=== PATIENT | female | born 1950 | race Caucasian/White ===

== ENCOUNTER 2024-07-20 19:12 | Inpatient (IN) | payer BC, MEDICARE, OTHER ==
[~2024-07-20] VITALS: Ht 157.5 cm; Wt 50.3 kg
[2024-07-20] MEDS: SENNOSIDES/DOCUSATE SODIUM TABLET PO SCH (02:15)
[~2024-07-20 19:12] MED LIST: ACET-2154 PO; MAGN400O6 PO; POTA20PA40 PO; THIA100T13 PO; ZOFRAN IV
[2024-07-20] MEDS ORDERED: SENN1TAB59 PO (19:37)
[2024-07-20] MEDS ORDERED: DOCU-141 PO (19:37)
[2024-07-20] MEDS ORDERED: MELA10TA2 PO (19:37)
[2024-07-20] MEDS ORDERED: MIRT-73 PO (19:37)
[2024-07-20] MEDS ORDERED: GABA-532 PO (19:37)
[2024-07-20] MEDS ORDERED: GUAI237L98 PO (19:37)
[2024-07-20] MEDS ORDERED: QUET100T PO (19:37)
[2024-07-20] MEDS ORDERED: LORA-259 PO (19:37)
[2024-07-20] MEDS ORDERED: MAG30ORA PO (19:37)
[2024-07-20] MEDS ORDERED: THIA50TA10 PO (19:37)
[2024-07-20] MEDS ORDERED: NA P133E RC (19:37)
[2024-07-20] MEDS ORDERED: TRAZ-257 PO (19:37)
[2024-07-20] MEDS ORDERED: QUET50TA PO (19:37)
[2024-07-20 20:07] LABS: BASOPHILS # (AUTO) 0.1 K/UL (0.0-0.2); BASOPHILS % (AUTO) 0.9 % (0.0-2.0); EOSINOPHILS # (AUTO) 0.2 K/uL (0.0-0.7); EOSINOPHILS % (AUTO) 2.7 % (0.0-7.0); HEMATOCRIT 36.3 % (31.2-41.9); HEMOGLOBIN 11.7 g/dL (10.9-14.3); LYMPHOCYTES # (AUTO) 1.7 K/uL (0.8-4.8); LYMPHOCYTES % (AUTO) 29.7 % (20.5-51.5); MEAN CORPUSCULAR HEMOGLOBIN 29.4 uug (24.7-32.8); MEAN CORPUSCULAR HGB CONC 32 g/dL (32.3-35.6); MEAN CORPUSCULAR VOLUME 91.5 fL (75.5-95.3); MONOCYTES # (AUTO) 0.4 K/uL (0.1-1.30); MONOCYTES % (AUTO) 7.4 % (0.0-11.0); NEUTROPHILS # (AUTO) 3.4 K/uL (1.8-8.9); NEUTROPHILS % (AUTO) 59.3 % (38.5-71.5); PLATELET COUNT (AUTO) 222 K/uL (179-408); RED BLOOD CELL COUNT(AUTO) 3.96 MIL/uL (3.63-4.92); RED CELL DISTRIBUTION WIDTH 16.4 % (12.3-17.7); WHITE BLOOD COUNT (AUTO) 5.7 K/uL (3.8-11.8)
[2024-07-20 20:09] LABS: DIFFERENTIAL COMMENT 1
[2024-07-20 20:14] LABS: CALCIUM 9.4 mg/dL (8.5-10.1); CARBON DIOXIDE 30 mmol/L (21-32); CHLORIDE 105 mmol/L (98-107); CREATININE 1.2 mg/dL (0.6-1.3); GLUCOSE 94 mg/dL (74-106); POTASSIUM 3.7 mmol/L (3.5-5.1); SODIUM SERUM 143 mmol/L (136-145); UREA NITROGEN, BLOOD 32 mg/dL (7-18)
[2024-07-20 20:22] LABS: ALANINE AMINOTRANSFERASE 61 U/L (14-59); ALKALINE PHOSPHATASE 104 U/L (50-136); ASPARTATE AMINOTRANSFERASE 47 U/L (15-37); BILIRUBIN,DIRECT 0.1 mg/dL (0.0-0.2); BILIRUBIN,TOTAL 0.3 mg/dL (0.2-1.0); TOTAL PROTEIN, SERUM 7.6 g/dL (6.4-8.2)
[2024-07-20 20:32] LABS: ETHANOL < 3 MG/DL (0-10)
[2024-07-20] MEDS ORDERED: MAG HYDROX/AL HYDROX/SIMETH 30 ML LIQUID UDC PO PRN (21:00)
[2024-07-20] MEDS ORDERED: ACETAMINOPHEN 325 MG TABLET-SA PATIENTS-PAIN ONLY PO PRN (21:00)
[2024-07-20 22:25] LABS: *BILIRUBIN,URIN NEGATIVE (NEGATIVE); *BLOOD, URINE NEGATIVE (NEGATIVE); *CLARITY,URINE CLEAR (CLEAR); *COLOR,URINE YELLOW (YELLOW); *KETONES,URINE 1+ (NEGATIVE); *PROTEIN,URINE NEGATIVE (NEGATIVE); *UROBILINOGEN,URINE 0.2 E.U./dl (NORMAL); LEUKOCYTE ESTERASE ,URINE NEGATIVE (NEGATIVE); NITRITE, URINE NEGATIVE (NEGATIVE); UGLUCOSE NEGATIVE (NEGATIVE)
[2024-07-20 23:28] LABS: *AMPHETAMINE, URINE NEGATIVE (NEGATIVE); *BARBITURATE, URINE NEGATIVE (NEGATIVE); *BENZODIAZEPINE, URINE NEGATIVE (NEGATIVE); *CANNABINOID, URINE NEGATIVE (NEGATIVE); *COCCAINE, URINE NEGATIVE (NEGATIVE); *OPIATE, URINE NEGATIVE (NEGATIVE); *PHENCYCLIDINE SCREEN,URINE NEGATIVE (NEGATIVE); FENTANYL, URINE NEGATIVE (NEGATIVE)
[2024-07-21 01:15] VITALS: BP 133/67; TEMP 98; O2SAT 95
[2024-07-21] MEDS ORDERED: LORAZEPAM 0.5 MG TABLET PO PRN ×2 (01:15)
[2024-07-21] MEDS ORDERED: TEMAZEPAM 7.5 MG CAPSULE PO PRN (01:15)
[2024-07-21] MEDS ORDERED: MAGNESIUM HYDROXIDE 30 ML LIQUID UDC PO PRN (01:15)
[2024-07-21] MEDS: BLOOD SUGAR DIAGNOSTIC 1 EACH STRIP VI ONE (01:30)
[2024-07-21] MEDS: TEMAZEPAM 7.5 MG CAPSULE PO PRN (01:40)
[2024-07-21 08:08] VITALS: BP 140/56; TEMP 98; O2SAT 96
[2024-07-21] MEDS: DOCUSATE SODIUM 100 MG CAPSULE PO SCH (08:48)
[2024-07-21] MEDS: THIAMINE HCL 100 MG TABLET PO SCH (08:48)
[2024-07-21] MEDS ORDERED: Medication Not On Formulary EA (Thiamine Hcl (Vitamin B-1) 100 MG) PO SCH (09:00)
[2024-07-21] MEDS: LORAZEPAM 0.5 MG TABLET PO PRN (15:13)
[2024-07-21 15:34] VITALS: BP 103/56; TEMP 98; O2SAT 94
[2024-07-21] MEDS: OLANZAPINE 10 MG VIAL IM ONE (16:00)
[2024-07-21] MEDS: LORAZEPAM 1 MG TABLET PO SCH (17:29)
[2024-07-21] MEDS: QUETIAPINE FUMARATE 25 MG TABLET PO SCH (20:06)
[2024-07-21 20:16] VITALS: BP 99/63; TEMP 97.9; O2SAT 95
[2024-07-22] MEDS: risperiDONE 0.5 MG TABLET PO SCH (08:38)
[2024-07-22 10:29] VITALS: BP 100/59; TEMP 98.2; O2SAT 96
[2024-07-22 11:33] LABS: ALBUMIN 3.6 g/dL (3.4-5.0); BILIRUBIN,DIRECT 0.1 mg/dL (0.0-0.2); BILIRUBIN,TOTAL 0.3 mg/dL (0.2-1.0); TOTAL PROTEIN, SERUM 7.4 g/dL (6.4-8.2)
[2024-07-22 15:33] VITALS: BP 117/52; TEMP 98; O2SAT 96
[2024-07-22] MEDS: risperiDONE 1 MG TABLET PO SCH (16:50)
[2024-07-22 20:03] VITALS: BP 150/70; TEMP 98.1; O2SAT 95
[2024-07-23 07:55] VITALS: BP 137/57; TEMP 98.2; O2SAT 98
[2024-07-23] MEDS: ACETAMINOPHEN 325 MG TABLET PO PRN (12:11)
[2024-07-23 16:04] VITALS: BP 106/80; TEMP 98.3; O2SAT 96
[2024-07-23 20:08] VITALS: BP 121/71; TEMP 98.1; O2SAT 94
[2024-07-23] MEDS: TEMAZEPAM 7.5 MG CAPSULE PO PRN (21:38)
[2024-07-24 07:40] VITALS: BP 106/56; TEMP 97.7; O2SAT 98
[2024-07-24 15:40] VITALS: BP 122/60; TEMP 97.6; O2SAT 97
[2024-07-24] MEDS: QUETIAPINE FUMARATE 25 MG TABLET PO SCH (20:16)
[2024-07-24 21:40] VITALS: BP 110/61; TEMP 98; O2SAT 98
[2024-07-25 08:00] VITALS: BP_SYST 130; BP_SYST 149; BP_DIAS 62; BP_DIAS 71; TEMP 98.2; TEMP 98.3; O2SAT 18; O2SAT 99
[2024-07-25] MEDS: DIVALPROEX 125 MG TABLET.DR PO SCH (13:06)
[2024-07-25] MEDS: risperiDONE 1 MG TABLET PO SCH (13:07)
[2024-07-25 15:00] VITALS: BP 129/72; TEMP 98.4; O2SAT 96
[2024-07-25 20:00] VITALS: BP 149/71; TEMP 98.2; O2SAT 96
[2024-07-26 09:54] VITALS: BP 119/72; TEMP 97.7; O2SAT 96
[2024-07-26] MEDS ORDERED: LORAZEPAM 0.5 MG TABLET PO PRN (11:00)
[2024-07-26] MEDS: ENSURE ENLIVE (VAN) 240 ML LIQUID PO SCH (16:42)
[2024-07-26 19:52] VITALS: BP 120/66; TEMP 97.9; O2SAT 95
[2024-07-26] MEDS: QUETIAPINE FUMARATE 25 MG TABLET PO SCH (20:50)
[2024-07-27 07:55] VITALS: BP 149/73; TEMP 98; O2SAT 96
[2024-07-27] MEDS: LORAZEPAM 0.5 MG TABLET PO SCH ×2 (08:52→16:58)
[2024-07-27] MEDS ORDERED: DIVALPROEX 125 MG TABLET.DR PO SCH ×2 (13:00)
[2024-07-27] MEDS: DIVALPROEX 250 MG TABLET.DR PO SCH ×2 (13:55→16:57)
[2024-07-27 15:19] VITALS: BP 137/48; TEMP 98; O2SAT 96
[2024-07-27 19:44] VITALS: BP 134/58; TEMP 98.1; O2SAT 96
[2024-07-27] MEDS: TEMAZEPAM 7.5 MG CAPSULE PO SCH (20:53)
[2024-07-28 07:27] LABS: BASOPHILS # (AUTO) 0.1 K/UL (0.0-0.2); BASOPHILS % (AUTO) 0.9 % (0.0-2.0); EOSINOPHILS # (AUTO) 0.2 K/uL (0.0-0.7); EOSINOPHILS % (AUTO) 2.1 % (0.0-7.0); HEMATOCRIT 34.2 % (31.2-41.9); HEMOGLOBIN 11.3 g/dL (10.9-14.3); LYMPHOCYTES # (AUTO) 1.5 K/uL (0.8-4.8); LYMPHOCYTES % (AUTO) 19.5 % (20.5-51.5); MEAN CORPUSCULAR HGB CONC 33 g/dL (32.3-35.6); MEAN CORPUSCULAR VOLUME 90.7 fL (75.5-95.3); MONOCYTES # (AUTO) 0.7 K/uL (0.1-1.30); MONOCYTES % (AUTO) 9.2 % (0.0-11.0); NEUTROPHILS # (AUTO) 5.1 K/uL (1.8-8.9); NEUTROPHILS % (AUTO) 68.3 % (38.5-71.5); PLATELET COUNT (AUTO) 225 K/uL (179-408); RED BLOOD CELL COUNT(AUTO) 3.77 MIL/uL (3.63-4.92); RED CELL DISTRIBUTION WIDTH 15.4 % (12.3-17.7); WHITE BLOOD COUNT (AUTO) 7.5 K/uL (3.8-11.8)
[2024-07-28 07:49] LABS: ALANINE AMINOTRANSFERASE 42 U/L (14-59); ALBUMIN 3.3 g/dL (3.4-5.0); ALKALINE PHOSPHATASE 94 U/L (50-136); ASPARTATE AMINOTRANSFERASE 34 U/L (15-37); BILIRUBIN,TOTAL 0.4 mg/dL (0.2-1.0); CALCIUM 9.2 mg/dL (8.5-10.1); CARBON DIOXIDE 31 mmol/L (21-32); CHLORIDE 108 mmol/L (98-107); GLUCOSE 97 mg/dL (74-106); POTASSIUM 4.1 mmol/L (3.5-5.1); SODIUM SERUM 146 mmol/L (136-145); TOTAL PROTEIN, SERUM 7.1 g/dL (6.4-8.2); UREA NITROGEN, BLOOD 22 mg/dL (7-18); VALPROIC ACID 31 ug/mL (50-100)
[2024-07-28 07:50] LABS: DIFFERENTIAL COMMENT 1
[2024-07-28 09:00] VITALS: BP 105/64; TEMP 98; O2SAT 98
[2024-07-28 15:17] VITALS: BP 114/52; TEMP 98; O2SAT 98
[2024-07-28 20:10] VITALS: BP 110/60; TEMP 98.1; O2SAT 96
[2024-07-29 08:39] VITALS: BP 126/44; TEMP 98; O2SAT 96
[2024-07-29] MEDS: LORAZEPAM 0.5 MG TABLET PO SCH (14:46)
[2024-07-29 16:35] VITALS: BP 99/44; TEMP 98; O2SAT 96
[2024-07-29 19:59] VITALS: BP 124/57; TEMP 98.1; O2SAT 96
[2024-07-30 15:36] VITALS: BP 139/68; TEMP 98; O2SAT 98
[2024-07-30] MEDS: DIVALPROEX SPRINKLE 125 MG CAP.SPRINK PO SCH (16:48)
[2024-07-31 01:59] LABS: *BILIRUBIN,URIN NEGATIVE (NEGATIVE); *BLOOD, URINE NEGATIVE (NEGATIVE); *CLARITY,URINE CLEAR (CLEAR); *COLOR,URINE YELLOW (YELLOW); *KETONES,URINE 1+ (NEGATIVE); *PROTEIN,URINE TRACE (NEGATIVE); *UROBILINOGEN,URINE 0.2 E.U./dl (NORMAL); LEUKOCYTE ESTERASE ,URINE NEGATIVE (NEGATIVE); NITRITE, URINE NEGATIVE (NEGATIVE); UGLUCOSE NEGATIVE (NEGATIVE)
[2024-07-31 07:41] LABS: BASOPHILS # (AUTO) 0.1 K/UL (0.0-0.2); BASOPHILS % (AUTO) 1.4 % (0.0-2.0); EOSINOPHILS # (AUTO) 0.2 K/uL (0.0-0.7); EOSINOPHILS % (AUTO) 3.1 % (0.0-7.0); HEMOGLOBIN 11.9 g/dL (10.9-14.3); LYMPHOCYTES # (AUTO) 1.4 K/uL (0.8-4.8); LYMPHOCYTES % (AUTO) 21.8 % (20.5-51.5); MEAN CORPUSCULAR HEMOGLOBIN 29.7 uug (24.7-32.8); MEAN CORPUSCULAR HGB CONC 33 g/dL (32.3-35.6); MONOCYTES # (AUTO) 0.5 K/uL (0.1-1.30); MONOCYTES % (AUTO) 8.2 % (0.0-11.0); NEUTROPHILS # (AUTO) 4.3 K/uL (1.8-8.9); NEUTROPHILS % (AUTO) 65.5 % (38.5-71.5); PLATELET COUNT (AUTO) 276 K/uL (179-408); RED CELL DISTRIBUTION WIDTH 15.2 % (12.3-17.7); WHITE BLOOD COUNT (AUTO) 6.5 K/uL (3.8-11.8)
[2024-07-31 07:47] VITALS: BP 121/43; TEMP 98; O2SAT 96
[2024-07-31 07:56] LABS: CALCIUM 9.1 mg/dL (8.5-10.1); CARBON DIOXIDE 29 mmol/L (21-32); CHLORIDE 107 mmol/L (98-107); CREATININE 0.8 mg/dL (0.6-1.3); DIFFERENTIAL COMMENT 1; GLUCOSE 93 mg/dL (74-106); MAGNESIUM 2.1 mg/dL (1.8-2.4); PHOSPHOROUS 3.7 mg/dL (2.5-4.9); SODIUM SERUM 145 mmol/L (136-145); UREA NITROGEN, BLOOD 21 mg/dL (7-18)
[2024-07-31] MEDS ORDERED: DIVALPROEX SPRINKLE 125 MG CAP.SPRINK PO SCH (08:00)
[2024-07-31] MEDS: OXCARBAZEPINE 150 MG TABLET PO SCH (09:55)
[2024-07-31 15:06] VITALS: BP 122/53; TEMP 98; O2SAT 96
[2024-07-31 19:47] VITALS: BP 133/51; TEMP 98.1; O2SAT 95
[2024-08-01 08:00] VITALS: BP 114/51; TEMP 97.2; O2SAT 97
[2024-08-01 20:01] VITALS: BP 145/63; TEMP 98.4; O2SAT 95
[2024-08-02 08:05] VITALS: BP 103/69; TEMP 98; O2SAT 98
[2024-08-02 15:20] VITALS: BP 103/64; TEMP 98; O2SAT 98
== END 2024-08-02 15:15 | DRG 885 ==
LOC: ER 19:15 → GPS 07-21 00:53
PROVIDERS: ADMIT Psychiatry & Neurology Psychosomatic Medicine; ATTEND Nurse Practitioner Acute Care
DX: F29 Unspecified psychosis not due to a substance or known physiological condition (principal); F03.93 Unspecified dementia, unspecified severity, with mood disturbance; F03.911 Unspecified dementia, unspecified severity, with agitation; F03.92 Unspecified dementia, unspecified severity, with psychotic disturbance; E86.0 Dehydration; I25.9 Chronic ischemic heart disease, unspecified; J44.9 Chronic obstructive pulmonary disease, unspecified; Z66 Do not resuscitate; R79.89 Other specified abnormal findings of blood chemistry; R26.89 Other abnormalities of gait and mobility; F10.21 Alcohol dependence, in remission; Z87.820 Personal history of traumatic brain injury; F25.9 Schizoaffective disorder, unspecified
CPT/HCPCS: 36415; 71045; 80164; 83735; 84100; 84484; 85025; 93005; C1758; G0480; J2358; J3490